=== PATIENT | female | born 1965 | race African-American/Black ===

== ENCOUNTER → 2016-04-13 | Outpatient (CLI) | payer OTHER | LOC: RAD 08:30 | DX: R10.9 Unspecified abdominal pain (principal) ==

== ENCOUNTER → 2017-05-16 | Outpatient (CLI) | payer OTHER ==
[~2017-05-16] MED LIST: AMITRIPTYLINE H10 M1 PO; ATIVAN1 M1 PO; CYMBALTA60 MG PO; FLEXERIL PO; LISINOPRIL10 MG PO; MOBIC15 MG PO; NABUMETONE 750750 M1 PO; NEURONTIN 300300 M1 PO; ROBAXIN500 MG PO; ZOFRAN4 MG PO
== END ==
LOC: MRI 09:58
DX: M48.061 Spinal stenosis, lumbar region without neurogenic claudication (principal); M54.16 Radiculopathy, lumbar region; M51.27 Other intervertebral disc displacement, lumbosacral region; M47.896 Other spondylosis, lumbar region

== ENCOUNTER → 2017-05-31 | Outpatient (CLI) | payer OTHER ==
[~2017-05-31] VITALS: Ht 160 cm; Wt 79.8 kg
[~2017-05-31] MED LIST changes: -FLEXERIL PO; -MOBIC15 MG PO
--- NOTE | ~2017-05-31 | HPC ---
[facility] [place] [address] PAIN MANAGEMENT CONSULTATION Name: CHARITYDARLENE E Room #: REG [facility].#: [id number] Admission: 05/31/17 Attend Phys: Luis Fernando Lucero MD Discharge: Date of : 69 Report #: [id number] THIS REPORT FOR: //name// CC: Luis Fernando Padilla MD DATE OF SERVICE: 05/31/2017 CHIEF COMPLAINT: Pain in the low back and down into both legs. HISTORY OF PRESENT ILLNESS: The patient is a 51-year-old female who has had some pain, which has been more problematic. It involves her lower back. She describes it as throbbing, sharp, aching, tender, continuous, and rhythmic. It involves her lower back and radiates down into her legs, left and right. She states that the pain is made worse when she is lying in bed as well as with some bending activities. Pain is better if she is resting and not doing much of anything. 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 Denies any bowel or bladder dysfunction, which is new, has not had back surgery. Denies any trauma. Pain has been problematic since 2014. ALLERGIES: PERCOCET, DEMEROL, TYLENOL NO. 3, PHENOTHIAZINE, OXYCODONE, VIOXX, TYLENOL WITH CODEINE. CURRENT MEDICATIONS: 1. Lyrica 150 mg p.o. t.i.d. 2. Flexeril 10 mg at bedtime. 3. Hydrocodone 5/325 one p.o. p.r.n. 4. Zofran 4 mg p.o. p.r.n. nausea and vomiting. 5. Relafen 750 mg tablets b.i.d. 6. Methocarbamol 500 mg. 7. Ativan 1 mg. 8. Gabapentin 300 mg t.i.d. 9. Lisinopril 10 mg daily. 10. Cymbalta 60 mg daily. PAST MEDICAL HISTORY: Hypertension, gallbladder disease, stomach problems, joint disease/arthritis, anxiety, fibromyalgia, irritable bowel syndrome. FAMILY HISTORY: Father, hypertension, prostate cancer. Brother prostate cancer, with prostate cancer in all three of her brothers. PAST SURGICAL HISTORY: x 2, cholecystectomy, abdominal hernia repair, and tubalectomy/tubal ligation. SOCIAL HISTORY: She is a RN. She is working at this juncture. Denies use of [address] [place] [address] PAIN MANAGEMENT CONSULTATION Name: DARLENE NASH Quintin Room #: REG [facility] Quiana#: [id number] Admission: 05/31/17 Attend Phys: Luis Fernando Lucero MD Discharge: Date of : 69 Report #: [id number] tobacco. Drinks 1-2 alcoholic beverages weekly. REVIEW OF SYSTEMS: Questionnaire in the chart indicates 14-point review, weight change, fever/night sweats, headaches, wears glasses, nausea, vomiting, headaches, varicose veins, numbness and tingling sensation in lower extremities, depression, insomnia, glandular/hormone problem, and bruising tendency. LABORATORY DATA: MRI of the lumbar spine dated 05/16/2017 reveals: 1. At L3-L4, there is mild diffuse disk bulge. There is odcm-md-mrnljzoj bilateral facet arthrosis. There is foraminal disk bulging resulting in moderate medial right and mild medial left neural foraminal stenosis. There is partial effacement of the exiting right L3 nerve root. 2. At L4-L5, there is a mild diffuse disk bulge. There is nwxb-kl-hiqogmji bilateral facet arthrosis. There is foraminal disk bulging and endplate osteophyte ridging with facet spurring resulting in moderate to severe right and mild left neural foraminal stenosis. There is partial effacement of the exiting right L4 nerve root. 3. At L5-S1, there is mild diffuse disk bulge, which superimposes shallow central disk protrusion. There is mild thecal sac stenosis. There is cpzp-rz-keqtznje bilateral facet arthrosis. There is foraminal disk bulging and endplate ossific ridging with superimposed shallow left foraminal disk protrusion. There is severe left neural foraminal stenosis with effacement of the exiting left L5 nerve root. There is drwp-tp-vurhcijb medial right neural foraminal stenosis. PAIN CLINIC ASSESSMENT: 1. History of osteoarthritis present in the lumbar area. 2. Height 5 feet 3 inches, weight 176 pounds, BMI is 31.2. 3. Vital signs: Blood pressure 128/86, pulse 73, respiratory rate 16, room air saturation is 100%. 4. Pain intensity: 6/10. 6. Fall risk: The patient has not fallen in the last 3 months. 7. Blood thinner: The patient is not on a blood thinner. 8. History of hypertension: The patient is being treated for hypertension. 9. Opioids greater than 6 weeks: The patient is not receiving medications from our pain clinic. 10. Risk assessment tool. 11. Functional assessment tool: 56/70 showing problems with activities of daily living secondary to the pain. 12. Recreational drug use: Denies use. 13. Tobacco: The patient has never smoked cigarettes. 14. Alcohol: Drinks 1-2 alcoholic beverages per week. PHYSICAL EXAMINATION: GENERAL: The patient is a well-developed black female. She appears her stated age. Orientation: The patient is alert and oriented x 3. Affect is [facility] [address] [place] [address] PAIN MANAGEMENT CONSULTATION Name: DARLENE NASH Room #: REG [facility] Araya#: [id number] Admission: 05/31/17 Attend Phys: Luis Fernando Lucero MD Discharge: Date of : 69 Report #: [id number] appropriate. Speech is smooth. HEENT: Normocephalic, atraumatic. Extraocular eye muscles intact. Hearing within normal limits. Sclerae nonicteric. Mucous membranes are moist. NECK: Without adenopathy or JVD. Good range of motion. HEART: Regular rate without murmurs. LUNGS: Clear to auscultation without rales or congestion. ABDOMEN: Nontender. MUSCULOSKELETAL: Within normal limits without significant scoliosis, kyphosis, or lordosis. Some low back pain in the left and right lower paraspinous muscle area. Has some soreness and discomfort up in the area of approximately T5 through T8. Notes some pain in the left fingers. Muscle strength in upper extremities is judged to be 5/5 for the major muscle groups with normal sensation, +2 biceps reflexes noted. Notes 5/5 muscle strength to the lower extremities. Able to rise on her toes and heels. Complains of some stabbing and shooting pain in the lower extremities in the calves bilaterally as well as in the anterior calves area. Also discomfort is in the L4-L5 distribution. IMPRESSION: 1. Lumbar radiculopathy in the lower extremities in L4-L5 distribution with MRI results showing foraminal stenosis effacing the L3-L4 and L4-L5 as well as L5 nerve roots. 2. Hypertension. 3. Anxiety. 4. Fibromyalgia. 5. Irritable bowel syndrome. 6. Joint pain. RECOMMENDATIONS: We discussed treatment options with the patient. Risks and benefits of an epidural steroid injection were discussed. Possible complications of the procedure were reviewed. The patient's MRI was discussed with use of a model. She states that she understands. Possible complication of that injection were reviewed. They include but are not limited to infection, increased muscle soreness, bleeding, nerve damage, spinal headache, worsening of pain or no improvement in pain. She elects to proceed. PROCEDURE NOTE: The patient was assisted to the treatment room. She was assisted in getting on the table. Back was sterilely prepped with a Betadine solution. This was allowed to dry. Fluoroscopy using an anterior, posterior as well as a lateral approach was undertaken. The target area was then identified. This area was infiltrated with 0.25% bupivacaine. A 17-gauge Tuohy with loss of resistance technique was used to gain access to the epidural space. There was no CSF, heme, or paresthesia. Total of 80 mg Depo-Medrol, 40 mg triamcinolone and 2 mL of 0.25% bupivacaine was injected. The patient tolerated the procedure well. Total of 15 seconds fluoroscopy time was used. She remained in the pain clinic for an appropriate amount of time. She will follow [address] [address] PAIN MANAGEMENT CONSULTATION Name: DARLENE NASH Room #: REG [facility] Araya#: [id number] Admission: 05/31/17 Attend Phys: Luis Fernando Lucero MD Discharge: Date of : 69 Report #: [id number] up in the future as needed. We would like to thank you for letting us participate in her care. We hope she continues to improve. By: [id number] Luis Fernando Lucero MD /SHEYLA
[2017-05-31 09:19] VITALS: BP 128/86
== END | disposition home or self-care (01) ==
LOC: PAIN 07:02
DX: M54.16 Radiculopathy, lumbar region (principal); I10 Essential (primary) hypertension; F41.9 Anxiety disorder, unspecified; M79.7 Fibromyalgia; M19.90 Unspecified osteoarthritis, unspecified site; K58.9 Irritable bowel syndrome, unspecified; Z68.31 Body mass index [BMI] 31.0-31.9, adult; F11.20 Opioid dependence, uncomplicated; Z79.899 Other long term (current) drug therapy

== ENCOUNTER 2019-12-15 14:40 | Emergency (ER) | payer OTHER ==
[~2019-12-15] VITALS: Ht 162.6 cm; Wt 80.9 kg
[~2019-12-15 14:40] MED LIST changes: +FLEXERIL PO; +MOBIC15 MG PO
[2019-12-15] MEDS ORDERED: METOPROLOL SUCC50 MG PO (15:16)
[2019-12-15] MEDS ORDERED: AMOXICILLIN875 MG PO (15:17)
[2019-12-15] MEDS ORDERED: ULTRAM 50MG TAB50 MG PO (19:56)
[2019-12-15 20:26] VITALS: BP 129/76
== END 2019-12-15 20:28 | disposition home or self-care (01) ==
LOC: ER 14:40
DX: R51 Headache (principal); Z79.2 Long term (current) use of antibiotics; Z79.899 Other long term (current) drug therapy; Z88.5 Allergy status to narcotic agent; Z88.8 Allergy status to other drugs, medicaments and biological substances

== ENCOUNTER → 2019-12-31 | Outpatient (CLI) | payer OTHER ==
[~2019-12-31] MED LIST changes: +AMOXICILLIN875 MG PO; +METOPROLOL SUCC50 MG PO; +ULTRAM 50MG TAB50 MG PO
== END ==
LOC: MRI 14:52
PROVIDERS: ATTEND Family Medicine
DX: G44.1 Vascular headache, not elsewhere classified (principal); R90.82 White matter disease, unspecified

== ENCOUNTER → 2020-04-29 | Outpatient (CLI) | payer OTHER ==
[~2020-04-29] VITALS: Ht 152.4 cm; Wt 85.5 kg
[~2020-04-29] MED LIST changes: +AMITRIPTYLINE H50 M2 PO; +BUTALBIT-ACETA1 EACH PO; +COQ-10100 MG PO; +NEURONTIN300 MG PO
[2020-04-29 13:48] VITALS: BP 121/75
--- NOTE | 2020-04-29 14:11 | NUR ---
Pain Clinic Assessment: 1. History of Osteoarthritis: LOW BACK History of Rheumatoid Arthritis: FIBROMYALGIA 2. Height: 5 ft. 3 in. 152.4 cm. Weight: 188.6 lb. oz. 85.548 kg. Patient's BMI: 36.8 3. Vital Signs: BP: 121/75 Pulse: 86 Resp: 16 Temp: 02 Sat: 100 ECG Mon: 4. Pain Intensity: 6 to 10 5. Fall Risk: Dizziness: Needs help standing or walking: Fallen in the last 3 months: Fall risk comments: 6. Patient on Blood Thinner: None 7. History of Hypertension: Y 8. Opioid Therapy greater than 6 weeks: N Opiate Contract Signed: 9. Risk Assessment Tool Provided: Opioid Risk Tool 10. Functional Assessment Tool: 11. Recreational Drug Use: Never Drug Type: Tobacco Use: Never Smoker Tobacco Type: Amount or Packs/day: How Many Years: Alcohol Use: Yes Frequency: Special Occasions Quant: 1
== END | disposition home or self-care (01) ==
LOC: PAIN 07:03
PROVIDERS: ATTEND Anesthesiology Pain Medicine
DX: M54.16 Radiculopathy, lumbar region (principal); M54.2 Cervicalgia; G89.29 Other chronic pain; I10 Essential (primary) hypertension; G43.909 Migraine, unspecified, not intractable, without status migrainosus; M79.7 Fibromyalgia; Z98.890 Other specified postprocedural states; Z79.899 Other long term (current) drug therapy; Z90.49 Acquired absence of other specified parts of digestive tract; Z98.51 Tubal ligation status; Z88.8 Allergy status to other drugs, medicaments and biological substances

== ENCOUNTER → 2020-07-01 | Outpatient (CLI) | payer OTHER ==
[~2020-07-01] VITALS: Ht 160 cm; Wt 84.1 kg
[2020-07-01 09:36] VITALS: BP 131/79
--- NOTE | 2020-07-01 09:47 | NUR ---
Pain Clinic Assessment: 1. History of Osteoarthritis: LOW BACK History of Rheumatoid Arthritis: FIBROMYALGIA 2. Height: 5 ft. 3 in. 160.0 cm. Weight: 185.4 lb. oz. 84.097 kg. Patient's BMI: 32.9 3. Vital Signs: BP: 131/79 Pulse: 68 Resp: 14 Temp: 02 Sat: 97 ECG Mon: 4. Pain Intensity: 7-8 W/ACTIVITY 5. Fall Risk: Dizziness: N Needs help standing or walking: N Fallen in the last 3 months: N Fall risk comments: 6. Patient on Blood Thinner: None 7. History of Hypertension: Y 8. Opioid Therapy greater than 6 weeks: N Opiate Contract Signed: 9. Risk Assessment Tool Provided: Opioid Risk Tool 10. Functional Assessment Tool: 56/70 11. Recreational Drug Use: Never Drug Type: Tobacco Use: Never Smoker Tobacco Type: Amount or Packs/day: How Many Years: Alcohol Use: Yes Frequency: Quant:
== END | disposition home or self-care (01) ==
LOC: PAIN 06:57
PROVIDERS: ATTEND Anesthesiology Pain Medicine
DX: M54.16 Radiculopathy, lumbar region (principal); M48.061 Spinal stenosis, lumbar region without neurogenic claudication; M54.2 Cervicalgia; I10 Essential (primary) hypertension; G43.909 Migraine, unspecified, not intractable, without status migrainosus; M79.7 Fibromyalgia; Z98.890 Other specified postprocedural states; Z79.899 Other long term (current) drug therapy; Z90.49 Acquired absence of other specified parts of digestive tract; Z88.6 Allergy status to analgesic agent; Z88.8 Allergy status to other drugs, medicaments and biological substances